=== PATIENT | female | born 1930 | race Caucasian/White ===

== ENCOUNTER 2016-09-26 10:18 | Emergency (ER) | payer MEDICARE, OTHER ==
[2016-09-26] MEDS ORDERED: IOPAMIDOL 300 (61%) 100 ML VIAL IV ONE (10:19)
[2016-09-26 12:19] LABS: ABSOLUTE NEUTROPHIL COUNT 14.6 K/mm3 (1.8-7.7); BASO # 0.1 K/mm3 (0.0-0.2); BASO % 0.5 % (0.2-1.0); EOS # 0.2 (0.0-0.5); EOS % 0.9 % (0.9-2.9); HEMOGLOBIN 13.8 gm/l (12.0-16.0); IMM NEUT # 0.1 K/mm3 (0-0.2); IMM NEUT% 0.7 % (0-1); LYMPH # 1.2 (1.0-4.8); LYMPH % 6.6 % (15-45); MEAN CORPUSCULAR HEMOGLOBIN 29.5 pg (27.0-31.0); MEAN CORPUSCULAR HGB CONC 31.4 g/dl (33.0-37.0); MEAN PLATELET VOLUME 9.5 fl (7.4-10.4); MONO # 1.6 (0.0-0.8); MONO % 9.1 % (4-12); NEUT % 82.2 % (43-75); PLATELET COUNT 391 K/mm3 (130-400); RED CELL DISTRIBUTION WIDTH 14.2 % (11.5-14.5)
[2016-09-26 12:32] LABS: CALCIUM 9.3 mg/dL (8.6-10.3)
--- NOTE | 2016-09-26 13:14 | CT ---
NECK SOFT TISSUE W/ CON: 09/26/2016 12:00 PM CLINICAL INDICATION: Right lower jaw swelling. Difficulty swallowing. COMPARISON: CT neck 09/10/2013 (MR) Sequences Performed: None (CT) Scan Technique: Diffuse axial 3 mm images from the AP window through the orbital meatal line are obtained after the uneventful IV demonstration of contrast. Sagittal and coronal reformations are also obtained this time. Contrast: 100 ml of Isovue-300 contrast administered. FINDINGS: Orbits/Paranasal Sinuses/Skull Base: Normal Nasopharynx: Normal Suprahyoid Neck: Inflammatory process is identified involving the superior medial right submandibular gland. Probable tiny abscess or an organized fluid collection is identified measuring approximately 1 x 0.7 cm on axial image 38. Overall, the gland measures approximately 2.6 x 3.1 x 4.4 cm. Portions of the medial aspect of the gland demonstrate decreased enhancement, which may relate to the inflammatory process or potentially underlying necrosis. Swelling is noted throughout the right hemithorax involving the spanish teacher space, extending into the carotid space. There is leftward mass effect upon the tracheal air column and tongue base. It would be difficult to exclude this process involving the tongue base given the distortion in the anatomy. Patient appears have had prior resection of the left submandibular gland and neck tissues. Sternocleidomastoid is still present, however. Infrahyoid Neck: include larynx, hypopharynx, supraglottis Thyroid: 7 mm right upper pole hypodense nodule is present. There is a somewhat heterogeneous appearance to the thyroid otherwise. Thoracic Inlet: Fluid, with air-fluid level is present within the esophagus. Correlation with reflux disease would be recommended. Lymph Nodes: No definite adenopathy is identified. Vascular Structures: Vascular calcifications are present at the carotid bulb left greater than right. Other Findings: Multilevel degenerative changes of the spine are present. No lytic or sclerotic lesions are seen. Grade 1 anterolisthesis of C4 on 5 is present. Degenerative changes at the atlantoaxial joint are noted. Patient is edentulous. IMPRESSION: Findings worrisome for right submandibular sialoadenitis though no stone is identified. Possible small abscesses identified as well. Portions of the gland do not enhance worrisome for possible necrosis. Mass effect upon the tongue base and tracheal air column is present though air column is otherwise patent. Post surgical changes on the left from prior resection. Other findings as above. Findings were called to Dr. Crespo at approximately 1309 hours on 09/26/2016.
== END 2016-09-26 14:26 | disposition home or self-care (01) ==
LOC: ED 10:18
DX: R22.0 Localized swelling, mass and lump, head (principal); R22.1 Localized swelling, mass and lump, neck; J02.9 Acute pharyngitis, unspecified
CPT/HCPCS: 85025; 80048; 70491; 99284 ×2; Q9967

== ENCOUNTER 2016-10-18 15:20 | Emergency (ER) | payer MEDICARE, OTHER ==
[2016-10-18] MEDS ORDERED: IOPAMIDOL 300 (61%) 100 ML VIAL IV ONE (15:21)
[2016-10-18 17:58] LABS: ABSOLUTE NEUTROPHIL COUNT 7.4 K/mm3 (1.8-7.7); BASO # 0.1 K/mm3 (0.0-0.2); BASO % 0.6 % (0.2-1.0); EOS # 0.2 (0.0-0.5); EOS % 2.1 % (0.9-2.9); HEMATOCRIT 40.9 % (37.0-47.0); IMM NEUT% 0.3 % (0-1); LYMPH # 1.2 (1.0-4.8); LYMPH % 12.2 % (15-45); MEAN CELL VOLUME 89.9 fl (81.0-99.0); MEAN CORPUSCULAR HEMOGLOBIN 28.6 pg (27.0-31.0); MEAN CORPUSCULAR HGB CONC 31.8 g/dl (33.0-37.0); MONO % 9.8 % (4-12); PLATELET COUNT 246 K/mm3 (130-400); RED CELL DISTRIBUTION WIDTH 15.4 % (11.5-14.5)
[2016-10-18 18:04] LABS: PH,URINE 6.5 (5.0-8.0); SPECIFIC GRAVITY 1.015 (1.001-1.030); URINE BILIRUBIN NEGATIVE (NEGATIVE); URINE BLOOD NEGATIVE (NEGATIVE); URINE GLUCOSE (UA) NEGATIVE (NEGATIVE); URINE LEUKOCYTE ESTERASE TRACE (NEGATIVE); URINE NITRITE NEGATIVE (NEGATIVE); URINE PROTEIN NEGATIVE (NEGATIVE); URINE UROBILINOGEN NORMAL (0-1 mg/dl)
[2016-10-18 18:06] LABS: URINE APPEARANCE CLEAR; URINE COLOR DARK YELLOW
[2016-10-18 18:11] LABS: URINE RBC 0 /hpf
[2016-10-18 18:12] LABS: URINE BACTERIA RARE; URINE EPITHELIAL CELLS 0-2 /hpf; URINE WBC 0-2 /hpf
[2016-10-18 18:16] LABS: ALB/GLOB RATIO 0.7 (>1.0); ALBUMIN 2.8 gm/dL (3.5-5.7); CALCIUM 8.6 mg/dL (8.6-10.3)
--- NOTE | 2016-10-18 18:50 | CT ---
EXAMINATION: Contrast enhanced CT scan of the abdomen and pelvis. CLINICAL INDICATION: Weakness. Abdominal pain. COMPARISON: 09/15/2016 01/15/2016. TECHNIQUE: Oral contrast: None Following uneventful administration of 100 mL of Isovue 300, intravenously axial images were acquired from just above the domes of the diaphragm to the iliac crest. A CT scan of the pelvis was also obtained from the iliac crest to the initial tuberosities. Stacked axial, sagittal, and coronal images were reviewed. Findings: Abdomen CT: (Contrast-enhanced): Intrathoracic stomach is again noted. Basilar atelectasis/parenchymal scarring with mild basilar bronchiectasis right greater than left is similar to the prior examination. Elevation right hemidiaphragm is unaltered. There is cardiomegaly and coronary vascular calcifications which are similar. The liver with postcholecystectomy change in prominent intrahepatic bile ducts as there is unable altered from the prior exam. No new hepatic mass lesion is identified. The spleen is unremarkable. The pancreas is considerably fatty replaced. No mass or inflammatory stranding is identified. The adrenals are unchanged. The kidneys are without hydronephrosis. Left renal cyst is similar. After chronic plaquing and ectasia of the abdominal aorta is similar. No aneurysm is identified. The upper abdomen there is considerable constipation. There is no evidence of small bowel obstruction free air or free fluid. Pelvic CT (contrast-enhanced) streak artifact from the spinal fusion is noted. Apparent severe compression deformity of L4 is noted. Superior endplate infraction of L1 is similar. Moderate compression deformity of T11 is unchanged. Severe constipation is evident. There is question of inflammatory stranding the sigmoid colon which may be a sequela of impaction. There is no free air identified. The visualized segments of the distended bladder are within normal limits. Bilateral hip arthroplasties obscure the majority of the pelvis. The overlying soft tissues exhibit atrophy. The remainder the visualized osseous structures remain stable. Uterus is not visualized on this examination due to limitations as above. IMPRESSION: 1. Severe constipation. There is question of slight inflammatory change involving the sigmoid colon of the visualized portions. Streak artifact from bilateral hip arthroplasties and spinal fusion limited some assessment of the pelvis. 2. No evidence of bowel obstruction or free air or free fluid. 3. Intrathoracic stomach. 4. Basilar atelectasis/peripheral scarring with bronchiectasis on the right. Findings may be sequela of recurrent aspiration. 5. Stable elevation right hemidiaphragm. 6. Stable intrahepatic biliary dilatation and postcholecystectomy change. 7. Stable atherosclerosis of the abdominal aorta with no aneurysm. The findings were uploaded to the electronic medical record for review at approximately 6:49 PM 10/18/2016
== END 2016-10-18 19:21 | disposition home or self-care (01) ==
LOC: ED 15:20
DX: R53.1 Weakness (principal); R10.9 Unspecified abdominal pain
CPT/HCPCS: 85025; 80053; 81001; 74177; 99284 ×2; 36415; Q9967

== ENCOUNTER 2016-11-28 11:53 | Day surgery (SDC) | payer MEDICARE, OTHER ==
[2016-11-28] MEDS ORDERED: LACTATED RINGERS 1,000 ML ONE (12:25)
[2016-11-28] MEDS ORDERED: LACTATED RINGERS 1,000 ML IV SCH (13:15)
[2016-11-28] MEDS ORDERED: LIDOCAINE Viscous 2% 15 ML UDCUP ONE (13:41)
[2016-11-28 17:20] LABS: HELICOBACTER PYLORII DETECTION NEGATIVE (NEGATIVE)
--- NOTE | 2016-12-01 14:15 | SURGPATH ---
[facility] [address] [place] [id number] Patient Name: ENE PENA MR#: [id number] : 1930 Gender: F Specimen #: [id number] Collected: 11/28/2016 Received: 11/30/2016 Reported: 12/01/2016 Submitting Phys: PAXTON PETERSON Copy To Phys: JUAN BLAKE [facility] Clinical History / Pre-Operative Diagnosis: Rule out gastritis and esophagitis Specimen Source / Surgical Procedure Performed: #1-antral; #2-esophagus at 32 cm Interpretation: 1. ANTRUM, BIOPSY: - MILD CHRONIC GASTRITIS - NEGATIVE FOR HELICOBACTER BY IMMUNOCHEMISTRY 2. ESOPHAGUS AT 32 CM, BIOPSY: - ACTIVE ESOPHAGITIS - PAS STAIN NEGATIVE FOR YEAST Electronically Signed Out Dami Sandoval M.D. Gross Description: #1 The specimen is received in a formalin filled container labeled with the patient's name and "antral". Two matos biopsies are 0.3 and 0.4 cm. Totally embedded in cassette #1. #2 The specimen is received in a formalin filled container labeled with the patient's name and "esophagus at 32 cm". Two peterson biopsies are 0.3 and 0.5 cm. Totally embedded in cassette #2. Chalo Herring Microscopic Description: Microscopic performed. Special stains performed after examination of routine stain (Analyte-specific reagents (ASR) are used in many laboratory tests necessary for standard medical care and generally do not require FDA approval. This test was developed and its performance characteristics determined by [facility]. It has not been cleared or approved by the U.S. Food and Drug Administration. [facility] is certified under the Clinical Laboratory Improvement Amendments of 1988 as qualified to perform high complexity clinical laboratory testing. All controls stain as expected.) 1: 79845, 72881 2: 27483, 85328 K20.8
== END 2016-11-28 15:05 | disposition home or self-care (01) ==
LOC: ED 11:53 → SDC 12:50
PROVIDERS: ATTEND Internal Medicine Gastroenterology
PROC: 0D748ZZ Dilation of Esophagogastric Junction, Via Natural or Artificial Opening Endoscopic (ICD-10-PCS; principal; 2016-11-28)
PROC: 0DB68ZX Excision of Stomach, Via Natural or Artificial Opening Endoscopic, Diagnostic (ICD-10-PCS; 2016-11-28)
PROC: 0DB58ZX Excision of Esophagus, Via Natural or Artificial Opening Endoscopic, Diagnostic (ICD-10-PCS; 2016-11-28)
DX: K22.2 Esophageal obstruction (principal); K21.0 Gastro-esophageal reflux disease with esophagitis; K29.70 Gastritis, unspecified, without bleeding; K29.80 Duodenitis without bleeding
CPT/HCPCS: 43249; 43239; 87081; 99284 ×2; 96360; A9270; J7120

== ENCOUNTER 2016-12-02 09:40 | Day surgery (SDC) | payer MEDICARE, OTHER ==
[~2016-12-02 09:40] MED LIST: LACTATED RINGERS 1,000 ML IV SCH
[2016-12-02] MEDS ORDERED: IV START KIT ONE (10:52)
[2016-12-02] MEDS ORDERED: LACTATED RINGERS 1,000 ML ONE (10:52)
[2016-12-02] MEDS ORDERED: PROPOFOL 20 ML IV ONE ×2 (11:26→13:33)
--- NOTE | 2016-12-06 16:23 | SURGPATH ---
[facility] [address] [place] [id number] Patient Name: ENE PENA MR#: [id number] : 1930 Gender: F Specimen #: [id number] Collected: 12/02/2016 Received: 12/05/2016 Reported: 12/06/2016 Submitting Phys: PAXTON PETERSON Copy To Phys: JUAN BLAKE Clinical History / Pre-Operative Diagnosis: DYSPHAGIA Specimen Source / Surgical Procedure Performed: ESOPHAGEAL Interpretation: ESOPHAGUS, BIOPSY: - ACUTE ESOPHAGITIS WITH INCREASED INTRAEPITHELIAL EOSINOPHILS, CONSISTENT WITH REFLUX ESOPHAGITIS - SEE COMMENT Comment: Clinical correlation is recommended. Electronically Signed Out Trinidad Perez M.D. Gross Description: The specimen is received in a formalin filled container labeled with the patient's name and "esophagus". Two peterson biopsies are 0.3 and 0.5 cm. Totally embedded in one cassette. Chalo Herring Microscopic Description: The sections show squamous mucosa with neutrophils in the superficial epithelium which also shows parakeratosis. Intraepithelial eosinophils are also seen, numbering up to eight per high power field. No columnar mucosa or intestinal metaplasia seen. A PAS stain is negative for fungal pseudohyphae. No columnar mucosa is seen. 1: 60746, 11345 K20.9
== END 2016-12-02 13:19 | disposition home or self-care (01) ==
LOC: SDC 09:40
PROVIDERS: ATTEND Internal Medicine Gastroenterology
PROC: 0D758ZZ Dilation of Esophagus, Via Natural or Artificial Opening Endoscopic (ICD-10-PCS; principal; 2016-12-02)
PROC: 0DB48ZX Excision of Esophagogastric Junction, Via Natural or Artificial Opening Endoscopic, Diagnostic (ICD-10-PCS; 2016-12-02)
DX: K22.2 Esophageal obstruction (principal); K21.0 Gastro-esophageal reflux disease with esophagitis; K29.70 Gastritis, unspecified, without bleeding; K29.80 Duodenitis without bleeding; Z88.5 Allergy status to narcotic agent; M40.209 Unspecified kyphosis, site unspecified
CPT/HCPCS: 43249; 43239; J7120

== ENCOUNTER 2016-12-06 14:38 | Emergency (ER) | payer MEDICARE, OTHER ==
[2016-12-06] MEDS ORDERED: KETOROLAC TROMETHAMINE 30 MG/ML 1 ML VIAL ONE (15:41)
[2016-12-06] MEDS ORDERED: ACETAMINOPHEN 500 MG TABLET ONE (15:41)
--- NOTE | 2016-12-06 16:34 | RAD ---
HIP - RIGHT 2 VW + AP PELVIS COMPARISON: Pelvis and left hip, 12/18/2014 HISTORY: Ground level fall. Right hip pain. FINDINGS: Views: AP pelvis. Right hip AP and lateral. Bones: Decreased mineralization. No fracture. Joints: Satisfactory appearance of the right total hip arthroplasty. Satisfactory appearance of the left total hip arthroplasty. Narrowing of the symphysis pubis. Normal sacroiliac joints. Lower lumbar spine: Lower lumbar spine fusion hardware. Soft tissues: Curvilinear calcification to the left of lumbar spine. IMPRESSION: 1. No acute finding. No fracture or dislocation. 2. Satisfactory appearance of both hip arthroplasties. 3. Generalized osteopenia. 4. Posterior lumbar spine fusion hardware. 5. Curvilinear calcification of the abdominal aorta, unchanged. 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
--- NOTE | 2016-12-06 16:35 | RAD ---
KNEE- RIGHT 4 OR MORE VIEWS COMPARISON: Right knee 4 views, 10/12/2013 HISTORY: Ground level fall. Right knee pain. VIEWS: Right knee external rotation, internal rotation, AP, and lateral FINDINGS: Bones: Decreased mineralization. Transverse fracture through the patella. Joints: Severe narrowing of the knee. Soft tissue: Vascular calcification. IMPRESSION: Nondisplaced transverse fracture through the patella.
== END 2016-12-06 18:04 | disposition home or self-care (01) ==
LOC: ED 14:38
DX: S82.001A Unspecified fracture of right patella, initial encounter for closed fracture (principal); S70.01XA Contusion of right hip, initial encounter; W10.2XXA Fall (on)(from) incline, initial encounter; Y92.009 Unspecified place in unspecified non-institutional (private) residence as the place of occurrence of the external cause
CPT/HCPCS: 73502; 73564; 99283 ×2; 96372; J1885; A9270

== ENCOUNTER 2016-12-12 11:37 | Inpatient (IN) | payer MEDICARE, OTHER ==
[2016-12-12 12:09] LABS: ABSOLUTE NEUTROPHIL COUNT 27.4 K/mm3 (1.8-7.7); BASO # 0.2 K/mm3 (0.0-0.2); BASO % 0.5 % (0.2-1.0); HEMATOCRIT 38.9 % (37.0-47.0); HEMOGLOBIN 12.6 gm/l (12.0-16.0); IMM NEUT # 1.5 K/mm3 (0-0.2); IMM NEUT% 4.7 % (0-1); LYMPH # 0.9 (1.0-4.8); LYMPH % 2.7 % (15-45); MEAN CELL VOLUME 85.3 fl (81.0-99.0); MEAN CORPUSCULAR HEMOGLOBIN 27.6 pg (27.0-31.0); MEAN CORPUSCULAR HGB CONC 32.4 g/dl (33.0-37.0); MONO # 1.8 (0.0-0.8); MONO % 5.6 % (4-12); NEUT % 86.5 % (43-75); PLATELET COUNT 375 K/mm3 (130-400); RED CELL DISTRIBUTION WIDTH 16.4 % (11.5-14.5)
[2016-12-12] MEDS ORDERED: LACTATED RINGERS 1,000 ML ONE (12:11)
[2016-12-12 12:19] LABS: ALB/GLOB RATIO 0.5 (>1.0); ALBUMIN 2.3 gm/dL (3.5-5.7)
--- NOTE | 2016-12-12 12:19 | CT ---
EXAMINATION: Noncontrast cranial CT. CLINICAL INDICATION: Stroke symptoms. Altered mental status. TECHNIQUE: A noncontrast cranial CT scan was obtained. Axial images were acquired from just above the vertex through the skull base. 4 mm stacked axial, coronal, and sagittal reconstructions were reviewed. COMPARISONS: 10/12/2013 FINDINGS: The CSF containing spaces are prominent throughout. There is diminished attenuation within the periventricular white matter tracts bilaterally. No acute intercranial hemorrhage, mass or mass effect is identified. No extra-axial fluid collections are detected. The visualized segments of the posterior fossa are unremarkable. The cerebellar pontine angle cisterns are symmetric. The osseous structures are intact. The paranasal sinuses are clear. The visualized portions of the orbits are unremarkable. There is some opacification the left mastoid sinuses. IMPRESSION: 1. Global diffuse atrophy with microvascular ischemic changes. No acute intracranial abnormalities are identified. 2. Left mastoid sinus disease. The findings were uploaded to the electronic medical record for review at approximately 12:19 PM 12/12/2016
[2016-12-12 12:36] LABS: INR 1.09; PARTIAL THROMBOPLASTIN TIME 26.5 SECONDS (24.5-33.0); PROTHROMBIN TIME 11.6 SECONDS (9.3-11.4)
[2016-12-12 13:10] LABS: SPECIFIC GRAVITY 1.015 (1.001-1.030); URINE BILIRUBIN 1+ (NEGATIVE); URINE BLOOD 2+ (NEGATIVE); URINE GLUCOSE (UA) NEGATIVE (NEGATIVE); URINE LEUKOCYTE ESTERASE 2+ (NEGATIVE); URINE NITRITE NEGATIVE (NEGATIVE); URINE PROTEIN 1+ (NEGATIVE)
[2016-12-12 13:12] LABS: URINE APPEARANCE HAZY; URINE COLOR DARK YELLOW; URINE UROBILINOGEN 4 mg/dL (0-1 mg/dl)
[2016-12-12 13:18] LABS: URINE AMORPHOUS SEDIMENT 1+; URINE BACTERIA 2+; URINE MUCUS 1+; URINE WBC 15-20 /hpf
--- NOTE | 2016-12-12 13:29 | RAD ---
EXAMINATION : CHEST-AP BEDSIDE HISTORY: Tachycardia. COMPARISONS: 03/08/2016. FINDINGS: Cardiomegaly is again noted. Moderate aortic ectasia appears similar to the prior study. Atherosclerotic plaquing is again noted. There is bibasilar atelectasis left greater than right. Elevation of the right hemidiaphragm appears similar to prior exams. No gross effusion is identified. Moderate to severe osteopenia appears similar. IMPRESSION: Cardiomegaly with pulmonary vascular congestion. There are low lung volumes with atelectasis and a retrocardiac infiltrate cannot be excluded. Elevation of the right hemidiaphragm is again noted.
[2016-12-12 13:37] LABS: BAND 7 % (0-10); BASOPHIL 0 % (0-1); EOSINOPHIL 0 % (1-3); LYMPHOCYTE 5 % (15-45); MONOCYTE 7 % (4-12); NEUTROPHILS 81 % (43-75); PLATELET ESTIMATE NORMAL (NORMAL); TOTAL CELLS COUNTED 100
[2016-12-12] MEDS ORDERED: CEFTRIAXONE 1 GRAM DUPLEX 50 ML IV ONE (13:46)
[2016-12-12] MEDS ORDERED: DILTIAZEM HCL 5 MG/ML 5ML VIAL IV ONE (13:47)
[2016-12-12] MEDS ORDERED: SODIUM CHLORIDE 0.9% FLUSH 10 ML ONE (14:18)
[2016-12-12] MEDS ORDERED: MAGNESIUM HYDROXIDE 30 ML UDCUP PO PRN (14:40)
[2016-12-12] MEDS ORDERED: MENTHOL/CETYLPYRD 1 EACH LOZENGE PO PRN (14:40)
[2016-12-12] MEDS ORDERED: SODIUM CHLORIDE 0.9% 100 ML IV PRN (14:40)
[2016-12-12] MEDS ORDERED: BLISTEX LIPSTICK 1 EACH TP PRN (14:40)
--- NOTE | 2016-12-12 16:52 | HP ---
ENE REGAN [id number] : 1930 DATE OF ADMISSION: December 12, 2016 IDENTIFICATION: Ms. Regan is an 86-year-old followed by Dr. Velasquez. CHIEF COMPLAINT: Altered mental status. HISTORY OF PRESENT ILLNESS: History is taken from the emergency room report. Patient is not able to provide any meaningful history and her family has departed at the time of my exam. She apparently had an episode of dysarthria and abnormal eye movements with her eyes rolling back in her head 30 minutes prior to arrival at the emergency department. Family was concerned for stroke, but the emergency room physician did not have that impression. Recent history includes an emergency room visit for an acute patellar fracture on December 06, 2016, and for an esophageal obstruction with food on November 28, 2016. She has also had previous visits October 19, September 29, and September 20, 2016 for constipation and weakness. Since her recent visit for patellar fracture, apparently her grandson has been picking her up to transfer her for all activities. She has been unable to ambulate. On evaluation in the emergency department, she was found to have evidence of a urinary tract infection as well as paroxysmal atrial fibrillation with tachycardia. She was treated with ceftriaxone, 10 mg of intravenous diltiazem and a liter of lactated Ringer's and referred to the hospitalist service. REVIEW OF SYSTEMS: Unable to obtain. Patient does indicate that she has pain all over and says she cannot move. She does not otherwise give intelligible answers to specific questions. PAST MEDICAL HISTORY: 1. Dementia. This has been apparently advancing. She did have a SLUMS score of 17/30 three years ago. 2. Gastroesophageal reflux and hiatal hernia. 3. History of aplastic anemia with multiple transfusions but no recent transfusion. 4. History of osteoporosis with bilateral chronic patellar fracture/dislocations and severe kyphosis. 5. History of paroxysmal atrial fibrillation. PAST SURGICAL HISTORY: 1. Bilateral hip replacements. 2. Appendectomy. 3. Cholecystectomy. 4. Total abdominal hysterectomy. 5. Multiple back surgeries. 6. Multiple jaw surgeries. 7. Multiple esophagogastroduodenoscopies. 8. Previous section. ALLERGIES: Our records indicate: 1. ADHESIVE TAPE. 2. CODEINE. 3. MORPHINE. HOME MEDICATIONS: We do not at this point have a complete list. Famotidine 40 mg at bedtime is the only medication indicated in current records. IMMUNIZATIONS: She did have a pneumonia vaccine in 2014. Flu vaccine status is unknown. HABITS: No current or past tobacco, alcohol or drugs. SOCIAL HISTORY: She has been cared for her by her grandson and [id number], but has exceeded their ability to continue to care for her and will need placement in a higher level of care. They were quite clear with the emergency room physician that she is DO NOT RESUSCITATE status but would like limited interventions including intravenous antibiotics. FAMILY HISTORY: From previous records, her father in his 50s of cancer from smoking. Her mother at age 95. PHYSICAL EXAMINATION: GENERAL: This is a cachectic, frail, elderly woman mumbling mostly unintelligible. VITAL SIGNS: In the emergency department, temperature 99.5 degrees Fahrenheit, pulse as high as 128, respiratory rate 24, blood pressure varied from 100/68 up to 149/77. HEENT: She does not cooperate with the eye exam. Oropharynx is edentulous and very dry. CHEST: Kyphotic but clear to auscultation. HEART: Is rapid and irregular. ABDOMEN: Soft, normal bowel tones, no tenderness or organomegaly. EXTREMITIES: Right knee is in a soft immobilizer. She has moderate dorsalis pedis pulses. There is no edema but there is cyanosis of the nail beds throughout. NEUROLOGIC: She is moving both upper extremities equally and attempting to speak. SKIN: There is a skin tear on the right forearm posterior just proximal to the wrist. There are multiple stage 2 ulcerations overlying her spinous processes and coccyx on the back. LABORATORY DATA: White blood cell count is 31.7 with 87% neutrophils, hemoglobin and hematocrit 12.6 and 38.9, platelets 375. INR 1.09, PTT 26.5. Sodium low at 128, potassium 3.4, chloride 97, CO2 23, BUN 38, creatinine 0.4, glucose 196. Bilirubin is 1.2, alkaline phosphatase 108, albumin low at 3.2. Urinalysis, specific gravity 1.015, 1+ protein, 1+ ketones, 2+ blood, negative nitrite but 2+ positive leukocyte esterase and microscopic shows 1 to 3 red blood cells, 15 to 20 white blood cells, and 2+ bacteria. Urine culture has been set up. RADIOLOGY: 1. CT scan of the brain shows global diffuse atrophy with microvascular ischemic changes. 2. Chest x-ray, cardiomegaly with pulmonary vascular congestion, low lung volumes with atelectasis, retrocardiac infiltrate cannot be excluded. Chronic elevation of the right hemidiaphragm. ASSESSMENT: Ene Regan is a demented 86-year-old who presents with: 1. Urinary tract infection. She appears to have sepsis with leukocytosis, tachycardia and tachypnea secondary to the urinary tract infection. 2. She has paroxysmal atrial fibrillation with tachycardia. 3. Dehydration with hyponatremia. PLAN: 1. Admit to medical/surgical floor. 2. Treatment with intravenous ceftriaxone for the urinary tract infection pending urine culture results. 3. IV hydration and electrolyte replacement. 4. We will continue to attempt rate control of her paroxysmal atrial fibrillation as tolerated. 5. DO NOT RESUSCITATE status. 6. Venous thromboembolism prophylaxis with IPC boots. 7. Care management and social work consultations for placement. 8. Physical therapy and occupational therapy evaluation and treatment.
[2016-12-12] MEDS ORDERED: PUMP TUBING ONE (17:04)
[2016-12-12] MEDS: NS/Potassium Chlor 20 mEq 1,000 ML IV SCH (17:09)
[2016-12-12 18:37] VITALS: BMI 20.7
[2016-12-12] MEDS: DOCUSATE SODIUM 100 MG CAPSULE PO SCH (21:13)
[2016-12-13] MEDS ORDERED: SODIUM CHLORIDE 0.9% 250 ML IV SCH (00:31)
[2016-12-13] MEDS ORDERED: SODIUM CHLORIDE 0.9% 500 ML ONE (00:36)
[2016-12-13] MEDS: ACETAMINOPHEN 325 MG TABLET PO PRN ×2 (01:43→20:02)
[2016-12-13] MEDS ORDERED: DILTIAZEM HCL 5 MG/ML 5ML VIAL IV ONE ×3 (02:51→14:24)
[2016-12-13 06:19] LABS: ABSOLUTE NEUTROPHIL COUNT 27.8 K/mm3 (1.8-7.7); HEMOGLOBIN 10.3 gm/l (12.0-16.0); IMM NEUT% 3.1 % (0-1); LYMPH # 1.1 (1.0-4.8); LYMPH % 3.6 % (15-45); MEAN CELL VOLUME 83.8 fl (81.0-99.0); MEAN CORPUSCULAR HEMOGLOBIN 27.8 pg (27.0-31.0); MEAN CORPUSCULAR HGB CONC 33.2 g/dl (33.0-37.0); MEAN PLATELET VOLUME 10.2 fl (7.4-10.4); MONO % 6.1 % (4-12); NEUT % 87.2 % (43-75); PLATELET COUNT 274 K/mm3 (130-400); RED CELL DISTRIBUTION WIDTH 16.6 % (11.5-14.5)
[2016-12-13 06:25] LABS: CALCIUM 8.4 mg/dL (8.6-10.3)
[2016-12-13] MEDS: NS/Potassium Chlor 20 mEq 1,000 ML IV SCH (07:32)
[2016-12-13 07:38] LABS: BAND 16 % (0-10); BASOPHIL 0 % (0-1); EOSINOPHIL 0 % (1-3); LYMPHOCYTE 5 % (15-45); MONOCYTE 4 % (4-12); NEUTROPHILS 75 % (43-75); PLATELET ESTIMATE NORMAL (NORMAL); TOTAL CELLS COUNTED 100
[2016-12-13] MEDS: LEVOFLOXACIN 750 MG/D5W 150 ML 750 MG in Premix (D5W) 150 ml Bag 1 EACH IV SCH (07:40)
--- NOTE | 2016-12-13 07:43 | PDOC43 ---
- Subjective Chief Complaint: Altered Mental status Minimally responsive, mostly stares blankly, but does indicate abdominal tenderness on exam - Objective Vital Signs Temperature 97.4 F 12/13/16 04:00 Pulse Rate 132 12/13/16 04:00 Respiratory Rate 38 12/13/16 04:00 Blood Pressure 94/72 12/13/16 04:00 O2 Saturation by Pulse Oximetry 99 12/13/16 04:00 Oxygen Delivery Method Nasal Cannula Oxygen Flow Rate 2 Intake and Output 12/12/16 12/13/16 12/14/16 06:59 06:59 06:59 Intake Total 2055 Output Total 288 Balance 1767 General: Alert, Mild Distress (tachypnea), No Oriented x3, No Cooperative HEENT: Other (mouth breathing and very dry) Lungs: Clear to Auscultation Bilaterally Cardiovascular: Irregular Abdomen: Soft, Tenderness, Hypoactive Bowel Sounds, No Masses Extremities: Normal Pulses, No Edema Laboratory 12/13/16 05:30 12/13/16 05:30 12/13/16 05:30 RBC 3.70 L RDW 16.6 H BUN 45 H Estimated GFR 151 H Calcium 8.4 L % Immature Granulocyt 3.1 H Current Medications: Current meds reviewed in EMR. - Problems: Assessment/Plan (1) UTI (lower urinary tract infection) Status: AcuteAssessment/Plan: Presumed bacterial with severe sepsis (leukocytosis, tachycardia, tachypnea, acute metabolic encephalopathy) present on admit. Urine culture pending but patient getting worse, add Levofloxacin to ceftriaxone treatment. (2) Atrial fibrillation Qualifiers: Atrial fibrillation type: paroxysmal Qualifier Code: (I48.0) Paroxysmal atrial fibrillation Status: ChronicAssessment/Plan: With tachycardia. Minimal response to 10 mg diltiazem, will try increased dose. (3) Hyponatremia Status: AcuteAssessment/Plan: Improved with IV replacement. (4) Dementia Qualifiers: Alzheimer's disease onset: late-onset Dementia behavioral disturbance: without behavioral disturbance Status: ChronicAssessment/Plan: At baseline patient is conversational, with current acute metabolic encephalopathy she is not speaking. (5) Osteoporosis Qualifiers: Osteoporosis type: age-related Presence of current pathological fracture: with current pathological fracture Status: ChronicAssessment/Plan: with sub-acute on chronic right patellar fracture. Ca/Vit D supplement. (6) Hypokalemia Status: AcuteAssessment/Plan: Worse with hydration, increase replacement. (7) Anemia Status: AcuteAssessment/Plan: Dilutional from IVF hydration VTE Prophylaxis: mechanical Disposition: Will need placement in higher level of care.
[2016-12-13] MEDS: SODIUM CHLOR 0.9% w 40mEq KCL 1,000 ML IV SCH ×3 (07:51→23:19)
[2016-12-13] MEDS: CALCIUM CARBONATE 600 MG/VITAMIN D3 400 UNIT/TABLET PO SCH ×3 (09:39→21:10)
[2016-12-13] MEDS: DOCUSATE SODIUM 100 MG CAPSULE PO SCH ×2 (09:39→21:10)
[2016-12-13] MEDS ORDERED: CEFTRIAXONE 1 GRAM DUPLEX 1 G in Premix (D5W) 50 ml 1 EACH IV SCH (12:00)
--- NOTE | 2016-12-13 16:35 | RAD ---
CHEST-AP BEDSIDE COMPARISON: Chest one view, 12/12/2016 HISTORY: Is of breath. FINDINGS: Views: Semiupright portable chest Lungs: No change. Decreased volume. Opacity in the left lung base. Elevated right hemidiaphragm Heart and vessels: No change. Cardiomegaly with some vascular congestion. Trachea and bronchi: Normal Mediastinum and rivas: Retrocardiac mass, evidence of a hiatal hernia. Costophrenic sulci: Normal Chest wall and bones: No acute finding. Bilateral rotator cuff arthropathy. Upper abdomen: Normal. IMPRESSION: 1. No change since prior day. Cardiomegaly with some vascular congestion. Atelectasis or infiltrate in left lung base. 2. Hiatal hernia. 3. Elevated right hemidiaphragm.
[2016-12-13] MEDS ORDERED: ALBUTEROL/IPRATROPIUM 2.5/0.5 MG 3 ML/EACH DOSE NEB PRN (16:42)
[2016-12-13] MEDS: TRAMADOL HCL 50 MG TABLET PO PRN ×2 (17:13→21:10)
[2016-12-13] MEDS: DILTIAZEM HCL 30 MG TABLET PO SCH (21:34)
[2016-12-13] MEDS ORDERED: SODIUM CHLORIDE 0.9% FLUSH 10 ML ONE (21:46)
[2016-12-13] MEDS ORDERED: IV START KIT ONE (21:46)
[2016-12-13] MEDS ORDERED: FUROSEMIDE 20 MG/2 ML VIAL IV ONE (22:56)
[2016-12-13 23:30] LABS: VENOUS BLOOD GAS HCO3 20.5 mmol/L (22.0-27.0)
[2016-12-14] MEDS: TRAMADOL HCL 50 MG TABLET PO PRN ×4 (01:32→21:45)
[2016-12-14] MEDS ORDERED: LORAZEPAM 2 MG/ML 1ML SDV IV ONE (03:36)
[2016-12-14] MEDS: DILTIAZEM HCL 30 MG TABLET PO SCH ×3 (03:37→15:02)
[2016-12-14 06:16] LABS: ABSOLUTE NEUTROPHIL COUNT 22.8 K/mm3 (1.8-7.7); EOS % 0.1 % (0.9-2.9); HEMATOCRIT 31.2 % (37.0-47.0); HEMOGLOBIN 10.3 gm/l (12.0-16.0); IMM NEUT # 1.1 K/mm3 (0-0.2); IMM NEUT% 4.2 % (0-1); LYMPH # 0.9 (1.0-4.8); LYMPH % 3.6 % (15-45); MEAN CELL VOLUME 83.4 fl (81.0-99.0); MEAN CORPUSCULAR HEMOGLOBIN 27.5 pg (27.0-31.0); MEAN PLATELET VOLUME 10.5 fl (7.4-10.4); MONO # 1.2 (0.0-0.8); MONO % 4.5 % (4-12); NEUT % 87.6 % (43-75); PLATELET COUNT 199 K/mm3 (130-400); RED CELL DISTRIBUTION WIDTH 16.8 % (11.5-14.5)
[2016-12-14 06:41] LABS: CALCIUM 9.3 mg/dL (8.6-10.3)
[2016-12-14 07:11] LABS: BAND 6 % (0-10); BASOPHIL 0 % (0-1); EOSINOPHIL 0 % (1-3); HYPOCHROMIA 1+; LYMPHOCYTE 6 % (15-45); MONOCYTE 1 % (4-12); NEUTROPHILS 87 % (43-75); PLATELET ESTIMATE NORMAL (NORMAL); TOTAL CELLS COUNTED 100
[2016-12-14] MEDS: CALCIUM CARBONATE 600 MG/VITAMIN D3 400 UNIT/TABLET PO SCH ×2 (08:51→15:02)
[2016-12-14] MEDS: DOCUSATE SODIUM 100 MG CAPSULE PO SCH (08:51)
[2016-12-14] MEDS ORDERED: FAMOTIDINE 20 MG TABLET PO SCH ×2 (10:15→21:00)
--- NOTE | 2016-12-14 10:29 | PDOC43 ---
- Subjective Chief Complaint: Altered Mental status Had episode of acute respiratory distress and failure yesterday. Now appears comfortable and denies c/o but still requiring O2. - Objective Vital Signs Temperature 97.9 F 12/14/16 07:38 Pulse Rate 94 12/14/16 07:38 Respiratory Rate 20 12/14/16 07:38 Blood Pressure 131/86 12/14/16 07:38 O2 Saturation by Pulse Oximetry 94 12/14/16 08:43 Oxygen Delivery Method Nasal Cannula Oxygen Flow Rate 6 Intake and Output 12/13/16 12/14/16 12/15/16 06:59 06:59 06:59 Intake Total 2055 1726 Output Total 288 961 Balance 1767 765 General: Alert, No Oriented x3, No Cooperative, No Acute Distress HEENT: Other (mouth breathing and very dry) Lungs: Other (ronchi bilateral) Cardiovascular: Irregular, No Murmur Abdomen: Soft, Tenderness, Hypoactive Bowel Sounds, No Masses Extremities: Edema (trace R>L), Pulses Diminished but Palpable Skin: Normal Color Neurological: Other (Weak, mostly mouthing words without voice) Psych/Mental Status: Flat Affect Laboratory 12/14/16 05:30 12/14/16 05:30 12/14/16 12/13/16 12/13/16 05:30 22:45 16:15 RBC 3.74 L RDW 16.8 H VBG pH 7.320 L VBG O2 Saturation 86.0 H VBG Base Excess -6.0 L Mixed VBG pO2 55.0 H Mixed VBG HCO3 20.5 L BUN 37 H Estimated GFR 210 H B-Natriuretic Peptide 272 H % Immature Granulocyt 4.2 H Current Medications: Current meds reviewed in EMR. - Problems: Assessment/Plan (1) UTI (lower urinary tract infection) Status: AcuteAssessment/Plan: Presumed bacterial with severe sepsis (leukocytosis, tachycardia, tachypnea, acute metabolic encephalopathy) present on admit. Urine culture growing Staph aureus and Klebsiella oxytoca both sensitive to Levofloxacin, stop ceftriaxone. (2) Pneumonia Qualifiers: Pneumonia type: due to unspecified organism Laterality: left Lung location: lower lobe of lung Qualifier Code: (J18.1) Lobar pneumonia, unspecified organism Status: AcuteAssessment/Plan: Presumed bacterial pneumonia also present on admit causing acute hypoxemic respiratory failure. Now on treatment with Levofloxacin, nebs, O2. (3) Atrial fibrillation Qualifiers: Atrial fibrillation type: paroxysmal Qualifier Code: (I48.0) Paroxysmal atrial fibrillation Status: ChronicAssessment/Plan: With intermittent tachycardia. On scheduled oral diltiazem. Anticoagulation is contraindicated due to risk of falls and bleeding. (4) Hyponatremia Status: AcuteAssessment/Plan: Improved with IV replacement. (5) Dementia Qualifiers: Alzheimer's disease onset: late-onset Dementia behavioral disturbance: without behavioral disturbance Status: ChronicAssessment/Plan: At baseline patient is conversational, current acute metabolic encephalopathy is improving and she is beginning to speak and respond appropriately. GCS on admit was 12, now 13. (6) Osteoporosis Qualifiers: Osteoporosis type: age-related Presence of current pathological fracture: with current pathological fracture Status: ChronicAssessment/Plan: with sub-acute on chronic right patellar fracture. Ca/Vit D supplement. May have brace off knee when in bed. (7) Hypokalemia Status: AcuteAssessment/Plan: Improving, oral replacement. (8) Anemia Status: AcuteAssessment/Plan: Dilutional from IVF hydration (9) Pulmonary edema Qualifiers: Chronicity: chronic Qualifier Code: (J81.1) Chronic pulmonary edema Status: ChronicAssessment/Plan: Due to presumed chronic diastolic heart failure related to chronic atrial fibrillation. IVF stopped and furosemide scheduled. ECHO is not indicated as results would not change treatment. (10) Dysphagia Qualifiers: Dysphagia type: unspecified Qualifier Code: (R13.10) Dysphagia, unspecified Status: ChronicAssessment/Plan: Chronic, related to dementia, on modified diet. VTE Prophylaxis: mechanical Disposition: Will need placement in higher level of care.
[2016-12-14] MEDS: POTASSIUM CHLORIDE 20 MEQ TAB.PRT.SR PO SCH (10:57)
[2016-12-14] MEDS: FUROSEMIDE 20 MG TABLET PO SCH (10:57)
[2016-12-14] MEDS: ALBUTEROL/IPRATROPIUM 2.5/0.5 MG 3 ML/EACH DOSE NEB SCH ×3 (12:11→19:41)
[2016-12-14] MEDS ORDERED: DILTIAZEM HCL 30 MG TABLET PO ONE (17:34)
[2016-12-14] MEDS ORDERED: DILTIAZEM HCL 30 MG TABLET ONE (17:36)
[2016-12-14] MEDS: SULFAMETHOXAZOLE 800 MG/TRIMETHOPRIM 160 MG TABLET PO SCH (21:09)
[2016-12-14] MEDS ORDERED: DILTIAZEM HCL 60 MG TABLET PO SCH (21:30)
[2016-12-14] MEDS: METOPROLOL TARTRATE 25 MG TABLET PO SCH (21:48)
[2016-12-14] MEDS ORDERED: FUROSEMIDE 20 MG/2 ML VIAL IV ONE (22:17)
[2016-12-15] MEDS: DOCUSATE SODIUM 100 MG CAPSULE PO SCH ×3 (00:35→21:10)
[2016-12-15] MEDS: CALCIUM CARBONATE 600 MG/VITAMIN D3 400 UNIT/TABLET PO SCH ×4 (00:35→21:10)
[2016-12-15] MEDS ORDERED: ACETAMINOPHEN 650 MG SUP PR PRN (03:43)
[2016-12-15 06:05] LABS: ABSOLUTE NEUTROPHIL COUNT 28.5 K/mm3 (1.8-7.7); BASO # 0.2 K/mm3 (0.0-0.2); BASO % 0.6 % (0.2-1.0); EOS % 0.1 % (0.9-2.9); HEMATOCRIT 32.2 % (37.0-47.0); HEMOGLOBIN 10.7 gm/l (12.0-16.0); IMM NEUT # 1.3 K/mm3 (0-0.2); LYMPH # 1.2 (1.0-4.8); LYMPH % 3.5 % (15-45); MEAN CELL VOLUME 83.6 fl (81.0-99.0); MEAN CORPUSCULAR HEMOGLOBIN 27.8 pg (27.0-31.0); MEAN CORPUSCULAR HGB CONC 33.2 g/dl (33.0-37.0); MEAN PLATELET VOLUME 10.8 fl (7.4-10.4); MONO # 1.6 (0.0-0.8); MONO % 4.7 % (4-12); NEUT % 87.1 % (43-75); PLATELET COUNT 192 K/mm3 (130-400)
[2016-12-15 06:31] LABS: CALCIUM 9.9 mg/dL (8.6-10.3)
[2016-12-15 07:08] LABS: BAND 4 % (0-10); BASOPHIL 0 % (0-1); EOSINOPHIL 0 % (1-3); HYPOCHROMIA 2+; LYMPHOCYTE 4 % (15-45); MONOCYTE 4 % (4-12); NEUTROPHILS 88 % (43-75); PLATELET ESTIMATE NORMAL (NORMAL); TOTAL CELLS COUNTED 100
[2016-12-15] MEDS: ALBUTEROL/IPRATROPIUM 2.5/0.5 MG 3 ML/EACH DOSE NEB SCH ×4 (07:23→20:32)
[2016-12-15] MEDS ORDERED: PUMP TUBING ONE (08:08)
[2016-12-15] MEDS: LEVOFLOXACIN 750 MG/D5W 150 ML 750 MG in Premix (D5W) 150 ml Bag 1 EACH IV SCH (08:27)
--- NOTE | 2016-12-15 08:58 | PDOC43 ---
- Subjective Chief Complaint: Altered Mental status Sleeping and unresponsive, GCS 6 - Objective Vital Signs Temperature 99.1 F 12/15/16 07:39 Pulse Rate 104 12/15/16 07:39 Respiratory Rate 28 12/15/16 07:39 Blood Pressure 124/42 12/15/16 07:39 O2 Saturation by Pulse Oximetry 93 12/15/16 07:39 Oxygen Delivery Method Non-Rebreather Oxygen Flow Rate 15 Intake and Output 12/14/16 12/15/16 12/16/16 06:59 06:59 06:59 Intake Total 1726 120 Output Total 961 1403 Balance 765 -1283 General: No Alert, No Oriented x3, No Cooperative, No Acute Distress HEENT: Other (dry) Lungs: Other (increasing ronchi bilateral) Cardiovascular: Irregular Abdomen: Soft, Hypoactive Bowel Sounds, No Tenderness, No Masses, No Distention Extremities: Pulses Diminished but Palpable, Other (feet cool to touch), No Edema Laboratory 12/15/16 05:30 12/15/16 05:30 12/15/16 05:30 RBC 3.85 L RDW 17.0 H BUN 33 H Estimated GFR 210 H % Immature Granulocyt 4.0 H Current Medications: Current meds reviewed in EMR. - Problems: Assessment/Plan (1) UTI (lower urinary tract infection) Status: AcuteAssessment/Plan: Presumed bacterial with severe sepsis (leukocytosis, tachycardia, tachypnea, acute metabolic encephalopathy) present on admit. Urine culture growing Staph aureus, presumed to be contaminant, and Klebsiella oxytoca sensitive to levofloxacin (2) Pneumonia Qualifiers: Pneumonia type: due to unspecified organism Laterality: left Lung location: lower lobe of lung Qualifier Code: (J18.1) Lobar pneumonia, unspecified organism Status: AcuteAssessment/Plan: Presumed bacterial pneumonia also present on admit causing acute hypoxemic respiratory failure. Now on treatment with Levofloxacin, nebs, O2. Respiratory failure is worse, patient now requiring 15 L/min O2, prognosis is extremely poor. Phone calls placed to discuss with family but so far have not been able to contact anyone. (3) Atrial fibrillation Qualifiers: Atrial fibrillation type: paroxysmal Qualifier Code: (I48.0) Paroxysmal atrial fibrillation Status: ChronicAssessment/Plan: With intermittent tachycardia. Rate control better on metoprolol. Anticoagulation is contraindicated due to risk of falls and bleeding. (4) Hyponatremia Status: AcuteAssessment/Plan: Improved with IV replacement. (5) Dementia Qualifiers: Alzheimer's disease onset: late-onset Dementia behavioral disturbance: without behavioral disturbance Status: ChronicAssessment/Plan: At baseline patient is conversational, current acute metabolic encephalopathy is improving and she is beginning to speak and respond appropriately. GCS on admit was 12, 13 on 12/14, but down to 6 today (6) Osteoporosis Qualifiers: Osteoporosis type: age-related Presence of current pathological fracture: with current pathological fracture Status: ChronicAssessment/Plan: with sub-acute on chronic right patellar fracture. Ca/Vit D supplement. May have brace off knee when in bed. (7) Hypokalemia Status: AcuteAssessment/Plan: Improving, oral replacement. (8) Anemia Status: AcuteAssessment/Plan: Dilutional from IVF hydration (9) Pulmonary edema Qualifiers: Chronicity: chronic Qualifier Code: (J81.1) Chronic pulmonary edema Status: ChronicAssessment/Plan: Due to presumed chronic diastolic heart failure related to chronic atrial fibrillation. IVF stopped and furosemide scheduled. ECHO is not indicated as results would not change treatment. (10) Dysphagia Qualifiers: Dysphagia type: unspecified Qualifier Code: (R13.10) Dysphagia, unspecified Status: ChronicAssessment/Plan: Chronic, related to dementia, on modified diet. VTE Prophylaxis: mechanical Disposition: Prognosis is extremely poor, patient appears to be actively dying despite treatment. Would like to discuss with family and suggest transition to comfort care.
[2016-12-15] MEDS: METOPROLOL TARTRATE 25 MG TABLET PO SCH ×2 (10:30→21:10)
[2016-12-15] MEDS: SULFAMETHOXAZOLE 800 MG/TRIMETHOPRIM 160 MG TABLET PO SCH (10:30)
[2016-12-15] MEDS: TRAMADOL HCL 50 MG TABLET PO PRN (10:31)
[2016-12-15] MEDS: FUROSEMIDE 20 MG TABLET PO SCH (10:31)
[2016-12-15] MEDS: POTASSIUM CHLORIDE 20 MEQ TAB.PRT.SR PO SCH (10:34)
[2016-12-15] MEDS ORDERED: VANCOMYCIN HCL 0 G in SODIUM CHLORIDE 0.9% 250 ML IV SCH (11:45)
[2016-12-15] MEDS ORDERED: VANCOMYCIN HCL IV ONE (14:00)
[2016-12-15] MEDS ORDERED: SODIUM CHLORIDE 0.9% IV ONE (14:00)
[2016-12-15] MEDS: MORPHINE SULFATE 2 MG/ML SYRINGE IV PRN ×3 (14:04→21:33)
[2016-12-15] MEDS ORDERED: ZINC OXIDE OINT 60 APPLIC/60 G TUBE TP PRN (14:28)
--- NOTE | 2016-12-15 14:42 | PDOC36 ---
Provider Note Subject: Spoke with the patient's grandson in regards to plan of care. He would like to keep her comfortable, no BiPAP but continue current treatment. He would like to speak with hospice as he would like to take her home.
[2016-12-15] MEDS ORDERED: ZINC OXIDE OINTMENT 30 APPLIC/30 G TUBE TP PRN (14:46)
[2016-12-15] MEDS: LORAZEPAM 2 MG/ML 1ML SDV IV PRN (17:02)
[2016-12-15] MEDS ORDERED: [UNRECOGNIZED DRUG - OTHER] MM PRN (20:48)
[2016-12-15] MEDS ORDERED: FAMOTIDINE 20 MG TABLET PO SCH (21:00)
[2016-12-15] MEDS ORDERED: PANTOPRAZOLE SODIUM 40 MG VIAL IV SCH (21:00)
[2016-12-15] MEDS ORDERED: SCOPOLAMINE 1.5 MG/72 HR 1 EACH PATCH TD SCH (21:00)
[2016-12-16] MEDS: MORPHINE SULFATE 2 MG/ML SYRINGE IV PRN (00:25)
[2016-12-16] MEDS: LORAZEPAM 2 MG/ML 1ML SDV IV PRN (00:25)
[2016-12-16 04:21] VITALS: BP 65/41
--- NOTE | 2016-12-16 07:43 | PDOC5 ---
ADMIT DATE: 12/12/16 DISCHARGE DATE: 12/16/16 ADMISSION DIAGNOSES: Altered Mental Status Discharge Diagnoses: Metabolic Encpehalopathy UTI Pneumonia Hyponatremia Dementia GERD Hiatal Hernia Anaplastic Anemia Osteoporosis Paroxsymal AFib Patellar Fracture December 06, 2016 Esophageal Obstruction November 28, 2016 PROCEDURES PERFORMED THIS HOSPITALIZATION: None CONSULTATIONS: None HOSPITAL COURSE: This is a 86 year old female with multiple recent evaluations for seeming unrelated events including weakness, constipation, patellar fracture and esophageal obstruction who appeared to have a TIA prior to emergency department presentation. She was found to have evidence of a UTI and was admitted to the hospital for continuing treatment. With her patellar fracture, her grandson who was caring for her, had to carry her for ADL's. She was provided with rocephin. On the 2nd day of hospitalization, she had an episode of acute respiratory distress. Her respiratory status gradually worsened over the next 24 hours. In discussion with her grandson, on the plan of care, his preference was to continue with treating the infection but keeping her comfortable. He did not want to pursue BiPAP therapy to help with her respiratory status. She December 16, 2016 around 4:30 AM from pneumonia and respiratory failure. - Exam Vital Signs Temperature 100.2 F 12/16/16 02:00 Pulse Rate 145 12/16/16 02:00 Respiratory Rate 40 12/16/16 02:00 Blood Pressure 65/41 12/16/16 02:00 O2 Saturation by Pulse Oximetry 84 12/16/16 02:00 Oxygen Delivery Method Non-Rebreather Oxygen Flow Rate 15 General: Other (defered, patient ) - Results Laboratory 12/15/16 05:30 12/15/16 05:30 Laboratory Tests 12/12/16 12/12/16 12/13/16 11:50 12:59 05:30 WBC 31.9 H VBG pH VBG O2 Saturation VBG Base Excess Mixed VBG pCO2 Mixed VBG pO2 Mixed VBG HCO3 Sodium 128 L 135 Potassium 3.4 L B-Natriuretic Peptide Urine Color Dark yellow Urine Appearance Hazy Urine pH 7.0 Ur Specific [place] 1.015 Urine Protein 1+ Urine Glucose (UA) Negative Urine Ketones 1+ Urine Blood 2+ Urine Nitrite Negative Urine Bilirubin 1+ Urine Urobilinogen 4 mg/dl H Ur Leukocyte Esterase 2+ Urine RBC 1-3 Urine WBC 15-20 Ur Epithelial Cells 1-3 Amorphous Sediment 1+ Urine Bacteria 2+ Urine Mucus 1+ 12/13/16 12/13/16 12/14/16 16:15 22:45 05:30 WBC 26.1 H VBG pH 7.320 L VBG O2 Saturation 86.0 H VBG Base Excess -6.0 L Mixed VBG pCO2 39.8 Mixed VBG pO2 55.0 H Mixed VBG HCO3 20.5 L Sodium 141 Potassium 3.4 L B-Natriuretic Peptide 272 H Urine Color Urine Appearance Urine pH Ur Specific [place] Urine Protein Urine Glucose (UA) Urine Ketones Urine Blood Urine Nitrite Urine Bilirubin Urine Urobilinogen Ur Leukocyte Esterase Urine RBC Urine WBC Ur Epithelial Cells Amorphous Sediment Urine Bacteria Urine Mucus 12/15/16 05:30 WBC 32.7 H VBG pH VBG O2 Saturation VBG Base Excess Mixed VBG pCO2 Mixed VBG pO2 Mixed VBG HCO3 Sodium Potassium B-Natriuretic Peptide Urine Color Urine Appearance Urine pH Ur Specific [place] Urine Protein Urine Glucose (UA) Urine Ketones Urine Blood Urine Nitrite Urine Bilirubin Urine Urobilinogen Ur Leukocyte Esterase Urine RBC Urine WBC Ur Epithelial Cells Amorphous Sediment Urine Bacteria Urine Mucus Urine Culture with Staph Aureus and Klebsiella oxytoca Imaging Results: CXR 12/13/2016: No change since prior. Cardiomegaly with some vascular congestion. Atelectasis or infiltrate in left lung base. Hiatal hernia. Elevated right hemidiaphragm CXR 12/12/2016: CArdiomegaly with pulmonary vascular congestion. There are low lung volumes with atelectasis and a retrocardiac infiltrate cannot be excluded. Elevation of right hemidiaphragm CT Head: Global diffuse atrophy with microvascular ischemic changes. No acute intracranial abnormalities. Left mastoid disease. - Problems:Assessment/Plan (1) Status: AcuteAssessment/Plan: Patient at 4:30 am from acute respiratory failure 2nd to pneumonia (2) Pneumonia Qualifiers: Pneumonia type: due to unspecified organism Laterality: left Lung location: lower lobe of lung Qualifier Code: (J18.1) Lobar pneumonia, unspecified organism Status: AcuteAssessment/Plan: Presumed bacterial pneumonia also present on admit causing acute hypoxemic respiratory failure. Now on treatment with Levofloxacin, nebs, O2. Respiratory failure is worse, patient now requiring 15 L/min O2, prognosis is extremely poor. Phone calls placed to discuss with family but so far have not been able to contact anyone. (3) UTI (lower urinary tract infection) Status: AcuteAssessment/Plan: Presumed bacterial with severe sepsis (leukocytosis, tachycardia, tachypnea, acute metabolic encephalopathy) present on admit. Urine culture growing Staph aureus, presumed to be contaminant, and Klebsiella oxytoca sensitive to levofloxacin (4) Hypokalemia Status: AcuteAssessment/Plan: Improving, oral replacement. (5) Hyponatremia Status: AcuteAssessment/Plan: Improved with IV replacement. (6) Anemia Status: AcuteAssessment/Plan: Dilutional from IVF hydration (7) Atrial fibrillation Qualifiers: Atrial fibrillation type: paroxysmal Qualifier Code: (I48.0) Paroxysmal atrial fibrillation Status: ChronicAssessment/Plan: With intermittent tachycardia. Rate control better on metoprolol. Anticoagulation is contraindicated due to risk of falls and bleeding. (8) Dementia Qualifiers: Alzheimer's disease onset: late-onset Dementia behavioral disturbance: without behavioral disturbance Status: ChronicAssessment/Plan: At baseline patient is conversational, current acute metabolic encephalopathy is improving and she is beginning to speak and respond appropriately. GCS on admit was 12, 13 on 12/14, but down to 6 today (9) Dysphagia Qualifiers: Dysphagia type: unspecified Qualifier Code: (R13.10) Dysphagia, unspecified Status: ChronicAssessment/Plan: Chronic, related to dementia, on modified diet. (10) Osteoporosis Qualifiers: Osteoporosis type: age-related Presence of current pathological fracture: with current pathological fracture Status: ChronicAssessment/Plan: with sub-acute on chronic right patellar fracture. Ca/Vit D supplement. May have brace off knee when in bed. (11) Hiatal hernia Status: Chronic - Disposition: Disposition: Prognosis is extremely poor, patient appears to be actively dying despite treatment. Would like to discuss with family and suggest transition to comfort care. - Discharge Plan Follow-Up: Aaliyah Velasquez MD [Primary Care Provider] - Disposition:
[2016-12-16] MEDS: ALBUTEROL/IPRATROPIUM 2.5/0.5 MG 3 ML/EACH DOSE NEB SCH ×2 (08:00→12:00)
[2016-12-16] MEDS: POTASSIUM CHLORIDE 20 MEQ TAB.PRT.SR PO SCH (09:00)
[2016-12-16] MEDS: DOCUSATE SODIUM 100 MG CAPSULE PO SCH (09:00)
[2016-12-16] MEDS: METOPROLOL TARTRATE 25 MG TABLET PO SCH (09:00)
[2016-12-16] MEDS: CALCIUM CARBONATE 600 MG/VITAMIN D3 400 UNIT/TABLET PO SCH (09:00)
[2016-12-16] MEDS: FUROSEMIDE 20 MG TABLET PO SCH (09:00)
[2016-12-16] MEDS ORDERED: VANCOMYCIN HCL IV SCH (14:00)
[2016-12-16] MEDS ORDERED: SODIUM CHLORIDE 0.9% IV SCH (14:00)
== END 2016-12-16 15:35 | disposition still patient (30) | DRG 308 ==
LOC: ED 11:37 → MS 13:49
PROVIDERS: ADMIT Family Medicine; ATTEND Family Medicine
DX: I48.0 Paroxysmal atrial fibrillation (principal); R65.20 Severe sepsis without septic shock; J18.1 Lobar pneumonia, unspecified organism; N39.0 Urinary tract infection, site not specified; E87.1 Hypo-osmolality and hyponatremia; M80.00XA Age-related osteoporosis with current pathological fracture, unspecified site, initial encounter for fracture; J81.1 Chronic pulmonary edema; B96.89 Other specified bacterial agents as the cause of diseases classified elsewhere; F03.90 Unspecified dementia, unspecified severity, without behavioral disturbance, psychotic disturbance, mood disturbance, and anxiety; E87.6 Hypokalemia; D64.9 Anemia, unspecified; B95.61 Methicillin susceptible Staphylococcus aureus infection as the cause of diseases classified elsewhere; K21.9 Gastro-esophageal reflux disease without esophagitis; K44.9 Diaphragmatic hernia without obstruction or gangrene